=== PATIENT | female | born 1945 | race Caucasian/White ===

== ENCOUNTER 2019-05-04 16:33 | Inpatient (IN) | payer MEDICARE, OTHER ==
[~2019-05-04] VITALS: Ht 167.6 cm; Wt 50.8 kg
[2019-05-04 16:51] LABS: BASOPHILS % (AUTO) 0.3 % (0.0-2.0); EOSINOPHILS % (AUTO) 0.5 % (0.0-7.0); HEMATOCRIT 36.9 % (31.2-41.9); HEMOGLOBIN 12.6 g/dL (10.9-14.3); LYMPHOCYTES # (AUTO) 0.9 K/uL (20.0-40.0); LYMPHOCYTES % (AUTO) 9.8 % (20.5-51.5); MEAN CORPUSCULAR HEMOGLOBIN 30.5 uug (24.7-32.8); MEAN CORPUSCULAR HGB CONC 34 g/dL (32.3-35.6); MEAN CORPUSCULAR VOLUME 89.5 fL (75.5-95.3); MONOCYTES # (AUTO) 0.7 K/uL (2.0-10.0); MONOCYTES % (AUTO) 7.3 % (0.0-11.0); NEUTROPHILS # (AUTO) 7.6 K/uL (1.8-8.9); NEUTROPHILS % (AUTO) 82.1 % (38.5-71.5); PLATELET COUNT (AUTO) 307 K/uL (179-408); RED BLOOD CELL COUNT(AUTO) 4.12 MIL/uL (3.63-4.92); WHITE BLOOD COUNT (AUTO) 9.3 K/uL (3.8-11.8)
[2019-05-04 16:59] LABS: CARBON DIOXIDE 29 mmol/L (21-32); CHLORIDE 97 mmol/L (98-107); CREATININE 0.7 mg/dL (0.6-1.3); GLUCOSE 108 mg/dL (74-106); POTASSIUM 3.6 mmol/L (3.5-5.1); UREA NITROGEN, BLOOD 10 mg/dL (7-18)
[2019-05-04 17:05] LABS: ALANINE AMINOTRANSFERASE 21 U/L (14-59); ALKALINE PHOSPHATASE 70 U/L (50-136); ASPARTATE AMINOTRANSFERASE 26 U/L (15-37); BILIRUBIN,DIRECT 0.1 mg/dL (0.0-0.2); BILIRUBIN,TOTAL 0.5 mg/dL (0.2-1.0); TOTAL PROTEIN, SERUM 7.6 g/dL (6.4-8.2)
[2019-05-04 17:08] LABS: ACETAMINOPHEN < 2.0 ug/mL (10-30)
[2019-05-04 17:14] LABS: ETHANOL < 3 MG/DL (0-0)
--- NOTE | 2019-05-04 18:02 | NUR ---
pt transfered to [facility] in stable condition. pt remained calm and cooperative in er. pt food tray sent with pt to [facility].
[2019-05-04 18:33] VITALS: BP 174/79
[2019-05-04] MEDS ORDERED: TEMAZEPAM 7.5 MG CAPSULE PO PRN (19:00)
[2019-05-04] MEDS ORDERED: MAGNESIUM HYDROXIDE 30 ML LIQUID UDC PO PRN (19:00)
[2019-05-04] MEDS ORDERED: MAG HYDROX/AL HYDROX/SIMETH 30 ML LIQUID UDC PO PRN (19:00)
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
[2019-05-04 20:00] VITALS: BP 132/69
[2019-05-05] MEDS ORDERED: ALENDRONATE SODIUM 70 MG TABLET PO SCH ×2 (06:00)
[2019-05-05] MEDS ORDERED: ALENDRONATE SODIUM 70 MG TABLET PO ONE (06:03)
[2019-05-05 07:31] LABS: ALANINE AMINOTRANSFERASE 25 U/L (14-59); ALKALINE PHOSPHATASE 68 U/L (50-136); ASPARTATE AMINOTRANSFERASE 20 U/L (15-37); BILIRUBIN,TOTAL 0.8 mg/dL (0.2-1.0); CARBON DIOXIDE 30 mmol/L (21-32); CHLORIDE 103 mmol/L (98-107); CREATININE 0.7 mg/dL (0.6-1.3); GLUCOSE 93 mg/dL (74-106); POTASSIUM 3.8 mmol/L (3.5-5.1); TOTAL PROTEIN, SERUM 7.2 g/dL (6.4-8.2); UREA NITROGEN, BLOOD 10 mg/dL (7-18)
[2019-05-05 07:44] VITALS: BP 134/70
[2019-05-05] MEDS: LORAZEPAM 0.5 MG TABLET PO PRN (08:59)
[2019-05-05] MEDS: MELOXICAM 7.5 MG TABLET PO SCH (08:59)
--- NOTE | 2019-05-05 10:20 | NUR ---
Social Work Note/Initial Discharge Plan: [place] [address]; ([phone]). Per admin coordinator Monisha, she stated that patient is welcomed back. TAMIKO will work with the pt and the MD regarding appropriate discharge planning. SW will form a safe and proper discharge.
--- NOTE | 2019-05-05 12:05 | NUR ---
Social Work Note/Family Contact: adz worker contacted patients daughter Imelda ([phone]) who stated that she lives in [place]. This documentation writer explained patients treatment plan and discharge plan. Per Imelda, patient does not have a POA or a conservator. Per Imelda, she stated that she keeps in touch with her mother and follows with her.
[2019-05-05] MEDS: CITALOPRAM 20 MG TABLET PO SCH (12:30)
[2019-05-05] MEDS: OLANZAPINE 5 MG TABLET PO SCH (12:30)
--- NOTE | 2019-05-05 15:40 | NUR ---
Social Work Note/Individual Therapy: utility worker forge met with patient for brief counseling. Patient stated that she has been hearing sounds. utility worker forge addressed patients safety and their level of insight into their mental illness. Patient was not receptive and cognizant. utility worker forge will meet with patient again.
[2019-05-05 15:47] VITALS: BP 144/74
[2019-05-05 20:33] VITALS: BP 126/68
--- NOTE | 2019-05-06 03:43 | NUR ---
patient noted awake, making bizarre movement with her hands, disorganized speech and delusional. she is also noted incontinent or urine. will continue to monitor behavior.
--- NOTE | 2019-05-06 03:53 | NUR ---
pt noted having visual and auditory hallucination. she is hard to redirect. will continue to monitor.
--- NOTE | 2019-05-06 06:35 | NUR ---
Patient slept for approx 7.15 hrs through the night. she continue with grossly disorganized behavior, waxy flexibility, disrobing and she is hard to redirect. will continue to monitor.
[2019-05-06 07:30] VITALS: BP 107/58
[2019-05-06] MEDS: OLANZAPINE 5 MG TABLET PO SCH (09:27)
[2019-05-06] MEDS: MELOXICAM 7.5 MG TABLET PO SCH (09:27)
[2019-05-06] MEDS: CITALOPRAM 20 MG TABLET PO SCH (09:27)
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
[2019-05-06 16:00] VITALS: BP 150/76
[2019-05-06 20:15] VITALS: BP 150/83
[2019-05-06] MEDS: ACETAMINOPHEN 325 MG TABLET PO PRN (22:25)
[2019-05-07] MEDS: LORAZEPAM 0.5 MG TABLET PO PRN ×2 (03:10→15:32)
[2019-05-07 07:30] VITALS: BP 140/82
[2019-05-07] MEDS: MELOXICAM 7.5 MG TABLET PO SCH (08:53)
[2019-05-07] MEDS: OLANZAPINE 5 MG TABLET PO SCH (08:53)
[2019-05-07] MEDS: CITALOPRAM 20 MG TABLET PO SCH (08:53)
--- NOTE | 2019-05-07 11:31 | NUR ---
Receive patient in bed this am. Right hand on side of head , near the eye, patient stated " If I move my hand a metal wire will go into my eye." Patient is very delusional and having hallucinations . Attempts made to redirect and reorient patient to reality and situation, not effective. Patient is medication compliant. Monitoring for escalating behaviors and for patients safety.
[2019-05-07] MEDS: ACETAMINOPHEN 325 MG TABLET PO PRN (15:32)
[2019-05-07 16:00] VITALS: BP 139/66
--- NOTE | 2019-05-07 20:00 | NUR ---
RECEIVED PATIENT IN HER ROOM IN BED. SHE IS NOTED AWAKE, A/O X 1; ABLE TO AMBULATE WITH STEADY GAIT. SHE PRESENTS ISOLATIVE, FLAT AFFECT, BIZARRE BX. PATIENT NOTED HAVING VISUAL/AUDITORY AND TACTILE HALLUCINATIONS. POOR HISTORIAN. PATIENT IN REASSURED FOR HER SAFETY. SAFETY AND FALL PRECAUTION IN PLACE. V/S STABLE. WILL CONTINUE TO MONITOR.
[2019-05-07] MEDS: OLANZAPINE ZYDIS 5 MG TAB.RAPDIS PO SCH (20:30)
[2019-05-07 21:16] VITALS: BP 127/64
[2019-05-08 07:30] VITALS: BP 134/64
[2019-05-08] MEDS: CITALOPRAM 20 MG TABLET PO SCH (08:38)
[2019-05-08] MEDS: MELOXICAM 7.5 MG TABLET PO SCH (08:38)
[2019-05-08] MEDS: OLANZAPINE ZYDIS 5 MG TAB.RAPDIS PO SCH (20:44)
[2019-05-08 20:59] VITALS: BP 147/74
--- NOTE | 2019-05-08 21:00 | NUR ---
RECEIVED PATIENT IN HER ROOM IN BED. SHE IS NOTED A/O X1, FLAT AFFECT, LOW MOOD. PATIENT CONTINUE RESPONDING TO INTERNAL STIMULI. SHE DENIES SI/HI. PATIENT IS REORIENTED TO TIME PLACE AND SITUATION. SHE IS REASSURED FOR HER SAFETY. FALL AND SAFETY PRECAUTION IN PLACE. V/S STABLE AT THIS TIME. PT IS COMPLIANT WITH MEDICATION REGIMENT. WILL CONTINUE TO MONITOR.
[2019-05-08] MEDS: ACETAMINOPHEN 325 MG TABLET PO PRN (22:46)
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
[2019-05-09 08:30] VITALS: BP 150/73
[2019-05-09] MEDS: MELOXICAM 7.5 MG TABLET PO SCH (08:52)
[2019-05-09] MEDS: CITALOPRAM 20 MG TABLET PO SCH (08:53)
[2019-05-09] MEDS: ACETAMINOPHEN 325 MG TABLET PO PRN (13:44)
[2019-05-09 15:30] VITALS: BP 151/84
[2019-05-09 20:00] VITALS: BP 141/75
[2019-05-09] MEDS: OLANZAPINE ZYDIS 5 MG TAB.RAPDIS PO SCH (21:28)
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
[2019-05-10 07:30] VITALS: BP 135/66
[2019-05-10] MEDS: CITALOPRAM 20 MG TABLET PO SCH (08:40)
[2019-05-10] MEDS: MELOXICAM 7.5 MG TABLET PO SCH (08:40)
[2019-05-10 10:08] VITALS: BP 135/66
--- NOTE | 2019-05-10 10:45 | NUR ---
Received patient standing at nursing station. Insisting on going home today. " I am suppose to be downstairs to get picked up". Explained to patient that we need a doctors order. Attempted to reorient patient to situation with reality based conversation. Very delusional this am but medication compliant. Continuing to monitor for safety and any distress. Reorientation and redirection given as needed.
[2019-05-10] MEDS: ACETAMINOPHEN 325 MG TABLET PO PRN (14:48)
[2019-05-10] MEDS: LORAZEPAM 0.5 MG TABLET PO PRN (14:48)
--- NOTE | 2019-05-10 17:37 | NUR ---
Patient has been delusional and hallucinating this afternoon. Found on knees in bathroom drinking out of the toilet.Statements made " There are knives all around me in the air " and " My mouth is full of signs". Very difficult to have reality based or meaningful conversations. Patient denies pain . Some agitation noted and medicated patient for anxiety. Medication with minimal effectiveness. Continuing to make frequent rounds and monitor patient for safety.
[2019-05-10 20:00] VITALS: BP 137/83
[2019-05-10] MEDS: OLANZAPINE ZYDIS 5 MG TAB.RAPDIS PO SCH (20:15)
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
[2019-05-11 07:30] VITALS: BP 147/80
[2019-05-11] MEDS: OLANZAPINE ZYDIS 5 MG TAB.RAPDIS PO SCH ×3 (09:00→20:00)
[2019-05-11] MEDS: MELOXICAM 7.5 MG TABLET PO SCH ×2 (09:00→10:19)
[2019-05-11] MEDS: CITALOPRAM 20 MG TABLET PO SCH ×2 (09:00→10:19)
[2019-05-11 15:41] VITALS: BP 103/64
--- NOTE | 2019-05-11 15:47 | NUR ---
Social Work Note/Individual Therapy: bottle line worker met with patient for brief counseling to address patients delusional thought content. This display card writer assessed to see if patient is experiencing auditory/visual hallucinations. Patient expressed that she is seeing "someone with knives". This display card writer assessed for patients safety and reassured that she is safe. This display card writer encouraged if she feels in danger to contact either this display card writer or the nursing staff. This display card writer provided active listening and emotional support.
[2019-05-11 20:00] VITALS: BP 121/71
[2019-05-12] MEDS ORDERED: ALENDRONATE SODIUM 70 MG TABLET PO SCH (06:00)
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
[2019-05-12 08:10] VITALS: BP 123/76
[2019-05-12] MEDS: CITALOPRAM 20 MG TABLET PO SCH (08:39)
[2019-05-12] MEDS: MELOXICAM 7.5 MG TABLET PO SCH (08:40)
[2019-05-12] MEDS: OLANZAPINE ZYDIS 5 MG TAB.RAPDIS PO SCH ×2 (08:40→20:21)
--- NOTE | 2019-05-12 14:55 | NUR ---
Social Work Note/Coordination of Care: Social Economist spoke with Monisha, Records Management Associate [facility] ([phone]) and stated that patient will be discharged 05/14 and is agreeable with discharge.
[2019-05-12 15:41] VITALS: BP 122/76
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
[2019-05-12] MEDS: ACETAMINOPHEN 325 MG TABLET PO PRN (20:19)
[2019-05-12 21:35] VITALS: BP 125/78
[2019-05-13 07:30] VITALS: BP 118/66
[2019-05-13] MEDS: CITALOPRAM 20 MG TABLET PO SCH (09:18)
[2019-05-13] MEDS: OLANZAPINE ZYDIS 5 MG TAB.RAPDIS PO SCH ×2 (09:18→20:07)
[2019-05-13] MEDS: MELOXICAM 7.5 MG TABLET PO SCH (09:20)
[2019-05-13 16:00] VITALS: BP 109/60
--- NOTE | 2019-05-13 20:40 | NUR ---
Received patient in the hallway, she was walking back to her room, isolative, does not want to interact, no disruptive behavior. Med compliant. No sign or symptom of resp. distress, breathing even, no indication of pain or discomfort. will continue to monitor for safety.
[2019-05-13 20:53] VITALS: BP 118/53
[2019-05-14] MEDS: ACETAMINOPHEN 325 MG TABLET PO PRN ×2 (01:42→14:09)
[2019-05-14 07:30] VITALS: BP 118/60
[2019-05-14] MEDS: MELOXICAM 7.5 MG TABLET PO SCH (08:35)
[2019-05-14] MEDS: CITALOPRAM 20 MG TABLET PO SCH (08:35)
[2019-05-14] MEDS: OLANZAPINE ZYDIS 5 MG TAB.RAPDIS PO SCH ×2 (08:35→20:47)
--- NOTE | 2019-05-14 13:46 | NUR ---
Patient has spent most of the day in the room. Encouraged patient to come to day room for meals, but patient refused. Patient noted to be yelling at the cornelius and telling staff " Get these signs out of my mouth." Still delusional and with some visual hallucinations. Was able to have short amounts of meaningful conversation. Patient has been medication compliant. Appears anxious and somewhat nervous this afternoon Continuing to monitor for mood escalation and for safety.
[2019-05-14] MEDS: LORAZEPAM 0.5 MG TABLET PO PRN (14:09)
[2019-05-14 15:19] VITALS: BP 134/62
--- NOTE | 2019-05-14 15:49 | NUR ---
Social Work Note/Individual Therapy: sanitation worker met with patient for brief counseling to address patients delusional thought content. This play writer assessed to see if patient is experiencing auditory/visual hallucinations. Patient expressed that she is hearing "drums and sounds" she expressed that it is "annoying her and she does not like it". This play writer assessed for patients safety and reassured that she is safe. This play writer encouraged if she feels in danger/uncomfortable to contact either this play writer or the nursing staff. This play writer provided active listening and emotional support.
[2019-05-14 20:00] VITALS: BP 120/66
--- NOTE | 2019-05-14 22:01 | NUR ---
AAOx1-2 patient admitted for severe schizophrenia. Ambulatory ad ivonne. always pacing back and forth to and fro. VSS. Making needs know. Will monitor patient. No signs of agitation noted. Calm and cooperative.
--- NOTE | 2019-05-15 06:49 | NUR ---
End of shift note: Sleeping on and off at short intervals. Continent of bowel and bladder. Voiding freely in BR but also have some periods of incontinence at times. Kept clean and dry. Will monitor patient. VSS Slept only 3 1/2 hrs. Needs attended.
[2019-05-15 07:30] VITALS: BP 144/79
--- NOTE | 2019-05-15 08:00 | NUR ---
Social Work Note: Structural Iron Worker completed and submitted a [employer] firearms report for 5250 grave disability certification. A copy of report has been placed in patient chart.
--- NOTE | 2019-05-15 08:07 | NUR ---
Social Work Discharge: Patient will be discharged to longterm facility to [facility] [address] [place] [address]; ) via Ambulance transportation at 12:00am. Scenic Arts Supervisor spoke with CAMPOS, Leader Assembler at [facility]; ([phone]), who stated patient will be accepted at facility today. Patient is alert and oriented x2-3, and is not able to plan for self-care at this time, but is willing to accept care provided for her at the facility. Patient denies any suicidal or homicidal ideations. Patient is aware and agreeable with discharge plans. Patients daughter Imelda, ([phone]) is aware and agreeable with discharge plans. Patient will continue to follow-up with her Psychiatrist Dr. Cruz and Development Rep Dr. Doll at [facility] [address] [place] [address]; ). Patient will follow-up at the center. Patient presents with euthymic mood and congruent affect.
[2019-05-15] MEDS: MELOXICAM 7.5 MG TABLET PO SCH (09:11)
[2019-05-15] MEDS: OLANZAPINE ZYDIS 5 MG TAB.RAPDIS PO SCH (09:11)
[2019-05-15] MEDS: CITALOPRAM 20 MG TABLET PO SCH (09:11)
--- NOTE | 2019-05-15 12:23 | NUR ---
received patient AOx1, compliant with medication , denies SI and HI, redirectable, patient ate her lunch, Discharge order to [facility] , gave report to nurse Alexsandra and patient was transferred via gurney, patient was calm and cooperative the whole time, TMS and Home meds instruction given MD made aware of the DC
== END 2019-05-15 12:26 | DRG 885 ==
LOC: ER 16:36 → GPS 18:01
PROVIDERS: ADMIT Psychiatry & Neurology Psychiatry; ATTEND Student in an Organized Health Care Education/Training Program
DX: F25.9 Schizoaffective disorder, unspecified (principal); E87.1 Hypo-osmolality and hyponatremia; E44.0 Moderate protein-calorie malnutrition; Z68.1 Body mass index [BMI] 19.9 or less, adult; Z79.899 Other long term (current) drug therapy; E86.1 Hypovolemia; M81.0 Age-related osteoporosis without current pathological fracture
CPT/HCPCS: 36415; 70030-TC; 70450; 71045; 84443; 85025; 93005; A4663; G0480; G0480-TC; J8499